=== PATIENT | male | born 1985 | race Two or more races ===

== ENCOUNTER 2017-05-05 01:18 | Emergency (ER) | payer OTHER ==
[2017-05-05 01:24] VITALS: BP 113/69; O2SAT 96
[2017-05-05] MEDS ORDERED: DEXAMETHASONE 4 MG TAB PO ONE (02:03)
--- NOTE | 2017-05-05 02:05 | EDPHY ---
H & P Stated Complaint: SORE THROAT AND HEADACHE X 3 DAYS Time Seen by Provider: 05/05/17 01:52 HPI/ROS: Chief Complaint: Sore throat, face pain HPI: 31-year-old male's had 2 days of left-sided face and neck pain and sore throat. Has pain with swallowing. Is having difficulty swallowing liquids. Took Advil 400 mg last 6 hours ago. No nausea or vomiting. No rash. No chest pain shortness of breath. No abdominal pain. ROS: 10 point Review of Systems is negative except as noted in the HPI. PMH: Denies Social History: No smoking, occasional alcohol, no recreational drug use Family History: non-contributory Physical Exam: Gen: Awake, Alert, No Distress HEENT: Ears are normal Face: Mild left maxillary sinus tenderness to percussion. Nose: no rhinorrhea Eyes: PERRLA, EOMI Mouth: Moist mucosa mild diffuse pharyngeal erythema without exudate or edema Neck: Supple, no JVD Chest: nontender, lungs clear to auscultation Heart: S1, S2 normal, no murmur Abd: Soft, non-tender, no guarding Back: no CVA tenderness, no midline tenderness Ext: no edema, non-tender Skin: no rash Neuro: CN II-XII intact, Sensation grossly intact, Strength 5/5 in bilateral upper and lower extremities - Personal History Current Tetanus/Diphtheria Vaccine: Unsure Current Tetanus Diphtheria and Acellular Pertussis (TDAP): Unsure - Medical/Surgical History Hx Asthma: No Hx Chronic Respiratory Disease: No Hx Diabetes: No Hx Cardiac Disease: No Hx Renal Disease: No Hx Cirrhosis: No Hx Alcoholism: No Hx HIV/AIDS: No Hx Splenectomy or Spleen Trauma: No - Social History Smoking Status: Never smoked Constitutional: Initial Vital Signs Temperature (C) 37.4 C 05/05/17 01:20 Heart Rate 92 05/05/17 01:20 Respiratory Rate 18 05/05/17 01:20 Blood Pressure 113/69 05/05/17 01:20 O2 Sat (%) 96 05/05/17 01:20 O2 Delivery Mode Room Air Allergies/Adverse Reactions: No Known Allergies Allergy (Unverified 05/05/17 01:24) Home Medications: Medication Instructions Recorded Penicillin V Potassium [Pen Vk 500 mg PO BID 10 Days tab 05/05/17 500mg (*)] Medical Decision Making ED Course/Re-evaluation: Strep screen is positive. Will start the patient on antibiotics. Referral for outpatient follow-up as needed. - Data Points Laboratory Results: 05/05/17 02:13 Group A Strep Screen POSITIVE H (NEGATIVE) Medications Given: Discontinued Medications Dexamethasone (Decadron) 8 mg PO EDNOW ONE Stop: 05/05/17 02:04 Last Admin: 05/05/17 02:12 Dose: 8 mg Departure - Departure Disposition: Home, Routine, Self-Care Clinical Impression: Strep pharyngitis Condition: Good Instructions: Strep Throat (ED) Additional Instructions: Alternate acetaminophen (1000 mg) with ibuprofen (400 mg) every 4 hours as needed for fevers, chills, aches or pains. Please take your full course of antibiotics. Referrals: FREDIS CAMPA [Other] - As per Instructions Prescriptions: Penicillin V Potassium [Pen Vk 500mg (*)] 500 mg PO BID 10 Days tab
[2017-05-05] MEDS ORDERED: PENICILLIN VK 500 MG TAB PO ONE (02:38)
[2017-05-05 02:50] VITALS: PULSE 74; RESP 16; TEMP 98.2
== END 2017-05-05 02:49 | disposition home or self-care (01) ==
DX: J02.0 Streptococcal pharyngitis (principal)